=== PATIENT | female | born 1940 | race Caucasian/White ===

== ENCOUNTER 2018-04-06 19:40 | Emergency (ER) | payer OTHER ==
[~2018-04-06] VITALS: Ht 157.5 cm; Wt 52.2 kg
[2018-04-06] MEDS ORDERED: FORTEO2.4 ML (20:20)
[2018-04-06] MEDS ORDERED: VASOTEC10 MG (20:21)
[2018-04-06] MEDS ORDERED: TOBREX5 ML (20:22)
[2018-04-06] MEDS ORDERED: NABUMETONE500 MG (20:22)
[2018-04-06] MEDS ORDERED: CALCITONIN-SAL3.7 ML (20:22)
[2018-04-06] MEDS ORDERED: REFRESH OPTIVE1 EACH (20:23)
[2018-04-06] MEDS ORDERED: REFRESH P.M. O3.5 GM (20:23)
[2018-04-06] MEDS ORDERED: KETOROLAC TROMET5 M1 (20:24)
[2018-04-06] MEDS ORDERED: SYSTANE1 EACH (20:24)
== END 2018-04-06 22:56 | disposition home or self-care (01) ==
LOC: ER 19:40
DX: M47.897 Other spondylosis, lumbosacral region (principal); M51.37 Other intervertebral disc degeneration, lumbosacral region; M50.321 Other cervical disc degeneration at C4-C5 level; M50.322 Other cervical disc degeneration at C5-C6 level; M50.323 Other cervical disc degeneration at C6-C7 level